=== PATIENT | male | born 1945 | race Caucasian/White ===

== ENCOUNTER 2018-03-30 06:09 | Emergency (ER) | payer MEDICARE, OTHER ==
[2018-03-30] MEDS ORDERED: HYDROmorphone 2 MG/ML SDV IVPUSH ONE (07:32)
[2018-03-30] MEDS ORDERED: Ondansetron 4 MG/2 ML SDV IVPUSH ONE (07:32)
[2018-03-30] MEDS ORDERED: Sodium Chloride 0.9% 10 ML Syringe FLUSH PRN (07:44)
[2018-03-30] MEDS ORDERED: Sodium Chloride 0.9% 1,000 ML IV SCH ×2 (07:45→08:45)
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
[2018-03-30] MEDS ORDERED: Tamsulosin 0.4 MG Cap.ER PO ONE (09:43)
[2018-03-30] MEDS ORDERED: Ketorolac 30 MG/ML SDV IVPUSH ONE (09:45)
[2018-03-30] MEDS ORDERED: traMADol 50 MG Tab PO ONE (10:52)
== END 2018-03-30 11:00 | disposition home or self-care (01) ==
LOC: FB.ED 06:09
DX: N13.2 Hydronephrosis with renal and ureteral calculous obstruction (principal); E11.9 Type 2 diabetes mellitus without complications; Z79.899 Other long term (current) drug therapy
CPT/HCPCS: 36415; 74176; 80053; 81001; 82150; 82947; 83605; 85025; 96361; 96374; 96375; 99284; A9270; J1170; J1885; J2405; J7030; J7050